=== PATIENT | male | born 1950 | race Caucasian/White ===

== ENCOUNTER 2020-12-29 16:05 | Emergency (ER) | payer OTHER, BC ==
[~2020-12-29] VITALS: Ht 180.3 cm; Wt 127.5 kg
[2020-12-29 16:55] VITALS: BP_SYST 155
--- NOTE | 2020-12-29 16:55 | NUR ---
Patient triaged and placed in waiting room. VSS and patient appears in no acute distress at this time. Accompanied by SELF, awaiting available bed, and MD notified of need for MSE.
[2020-12-29] MEDS ORDERED: METF1000 PO (17:00)
[2020-12-29] MEDS ORDERED: ATOR40TA68 PO (17:00)
[2020-12-29] MEDS ORDERED: METO50TA7 PO (17:00)
[2020-12-29] MEDS ORDERED: AZIL1TAB2 PO (17:00)
[2020-12-29] MEDS ORDERED: ASPI-1155 PO (17:00)
[2020-12-29] MEDS ORDERED: FINA5TAB3 PO (17:00)
--- NOTE | 2020-12-29 19:31 | NUR ---
PATIENT LEFT WITHOUT BEING SEEN.
== END 2020-12-29 19:31 | disposition left against medical advice (07) ==
LOC: SED 16:05
DX: M79.605 Pain in left leg (principal); Z53.21 Procedure and treatment not carried out due to patient leaving prior to being seen by health care provider